=== PATIENT | female | born 1980 ===

== ENCOUNTER 2017-03-01 12:52 | Emergency (ER) | payer OTHER ==
[2017-03-01 12:58] VITALS: BP 102/62; PULSE 78; RESP 17; TEMP 98.7; O2SAT 100
[2017-03-01] MEDS ORDERED: Tobramycin/Dexamethasone OPHT OINT OD STA (13:12)
--- NOTE | 2017-03-01 13:21 | ED PDOC ---
HPI: Eye Injury/Pain Time Seen by Provider: 03/01/17 12:58 Chief Complaint (Nursing): Eye Problem Chief Complaint (Provider): Right eye irritation History Per: Patient History/Exam Limitations: no limitations Onset/Duration Of Symptoms: Days Current Symptoms Are (Timing): Still Present Wears Contact Lens?: No Associated Symptoms: FB Sensation, Discharge From Eye. denies: Decreased Vision Additional History Per: Patient Additional Complaint(s): The patient is a 36yo female, past medical history of hypercholesterolemia, presents to the ED for evaluation of irritation and discharge from her right eye for the past two weeks. The patient reports she felt "wood" go into her eye after which she has had sensations of foreign body present. She denies any pain , changes in vision, blurry vision. Patient offers no additional medical complaints. Past Medical History Reviewed: Historical Data, Nursing Documentation, Vital Signs Vital Signs: Last Vital Signs Temp 98.7 F 03/01/17 12:55 Pulse 78 03/01/17 12:55 Resp 17 03/01/17 12:55 BP 102/62 03/01/17 12:55 Pulse Ox 100 03/01/17 12:55 - Medical History PMH: Hyperlipidemia, Migraine - Surgical History Surgical History: - Family History Family History: States: No Known Family Hx - Immunization History Hx Tetanus Toxoid Vaccination: No Hx Influenza Vaccination: No Hx Pneumococcal Vaccination: No - Allergies Allergies/Adverse Reactions: Allergies Allergy/AdvReac Type Severity Reaction Status Date / Time No Known Allergies Allergy Verified 03/01/17 12:55 Review of Systems ROS Statement: Except As Marked, All Systems Reviewed And Found Negative Eyes: Positive for: Other (foreign body sensation rt eye). Negative for: Vision Change Physical Exam - Reviewed Nursing Documentation Reviewed: Yes Vital Signs Reviewed: Yes - Physical Exam Appears: Positive for: Well, Non-toxic, No Acute Distress Head Exam: Positive for: ATRAUMATIC, NORMAL INSPECTION, NORMOCEPHALIC Skin: Positive for: Normal Color, Warm, DRY Eye Exam: Positive for: EOMI, PERRL, Other (corneal abrasion with uptake noted on pupil. small foreign body noted as well and removed with 18 gauge needle.) Neck: Positive for: Normal, Supple Cardiovascular/Chest: Positive for: Regular Rate, Rhythm Respiratory: Negative for: Respiratory Distress Neurologic/Psych: Positive for: Alert, Oriented - ECG O2 Sat by Pulse Oximetry: 100 Medical Decision Making Medical Decision Making: Time: 1305 Impression: Corneal abrasion Plan: -- Tobrade[employer] 1 application Reassess Scribe Attestation: Documented by Mónica Angel acting as a scribe for MALDONADO Alvarez Provider Attestation: All medical record entries made by the Scribe were at my direction and personally dictated by me. I have reviewed the chart and agree that the record accurately reflects my personal performance of the history, physical exam, medical decision making, and the department course for this patient. I have also personally directed, reviewed, and agree with the discharge instructions and disposition. Disposition - Clinical Impression Clinical Impression: Conjunctival abrasion, Foreign body in conjunctival sac - Patient ED Disposition Is Patient to be Admitted: No - Disposition Referrals: Paulo Mccoy MD [Staff Provider] - Disposition: Routine/Home Disposition Time: 14:10 Condition: STABLE Instructions: Corneal Abrasion (ED), Eye Foreign Body (ED) Forms: [employer]SA ([place]ian)
== END 2017-03-01 13:51 | disposition home or self-care (01) ==
LOC: H.ER 12:52
DX: T15.11XA Foreign body in conjunctival sac, right eye, initial encounter (principal)